=== PATIENT | male | born 1930 | race African-American/Black ===

== ENCOUNTER 2016-08-26 12:51 | Inpatient (IN) | payer MEDICARE, OTHER ==
[~2016-08-26] VITALS: Ht 185.4 cm; Wt 57.2 kg
[~2016-08-26 12:51] MED LIST: ACET-2902 PO; APIX5TAB PO; CARV6 PO; DIGO125T87 PO; DOCU250C91 PO; LEVO150 PO; MECL-111 PO; METF500T4 PO; PANT40TA25 PO; SENN-34 PO; SIMV-261 PO; TEMA15CA PO
[2016-08-26] MEDS ORDERED: ATEN25 PO (13:23)
[2016-08-26] MEDS ORDERED: LOSA50TA37 PO (13:23)
[2016-08-26] MEDS ORDERED: FERR-89 PO (13:23)
[2016-08-26 14:03] LABS: BASOPHILS % (AUTO) 0.1 % (0.0-2.0); EOSINOPHILS % (AUTO) 2.5 % (1.0-6.0); HEMATOCRIT 33.7 % (41-53); HEMOGLOBIN 10.5 g/dL (13.5-17.5); LYMPHOCYTES # (AUTO) 0.4 K/uL (1.0-4.8); LYMPHOCYTES % (AUTO) 7.3 % (22.0-44.0); MEAN CORPUSCULAR HEMOGLOBIN 23.7 pg (26.0-34.0); MEAN CORPUSCULAR HGB CONC 31.2 G/dL (31.0-37.0); MEAN CORPUSCULAR VOLUME 76 fL (80-100); MONOCYTES # (AUTO) 0.3 K/uL (0.1-1.0); MONOCYTES % (AUTO) 5.6 % (2.0-9.0); NEUTROPHILS # (AUTO) 5.2 K/uL (1.8-7.7); NEUTROPHILS % (AUTO) 84.5 % (40.0-70.0); PLATELET COUNT (AUTO) 321 K/uL (150-450); RED BLOOD CELL COUNT(AUTO) 4.45 MIL/uL (4.50-5.90); RED CELL DISTRIBUTION WIDTH 20.6 % (11.5-14.5); WHITE BLOOD COUNT (AUTO) 6.1 K/uL (4.5-11.0)
[2016-08-26 14:13] LABS: ANION GAP 8 mmol/L (8-16); CALCIUM, TOTAL 9.6 mg/dL (8.8-10.5); CARBON DIOXIDE 30 mmol/L (22-29); CHLORIDE 106 mmol/L (98-107); CREATININE 0.91 mg/dL (0.60-1.30); GLOMERULAR FILTR. RATE CALC > 60 mL/min (>60); POTASSIUM 3.3 mmol/L (3.5-5.1); SODIUM SERUM 144 mmol/L (136-145); UREA NITROGEN, BLOOD 16 mg/dL (7-18)
[2016-08-26 14:15] LABS: INR 1.2 (0.9-1.1); PROTHROMBIN TIME 12.5 SEC (9.4-11.6); RBC MORPHOLOGY COMMENT ABNORMAL RBC MORPH
[2016-08-26] MEDS ORDERED: ACETAMINOPHEN 325 MG TABLET PO PRN (14:15)
[2016-08-26] MEDS ORDERED: OxyCODONE HCL/ACETAMINOPHEN 5-325 MG TABLET PO PRN (14:15)
[2016-08-26] MEDS ORDERED: BISACODYL 10 MG RECTAL RECTAL SUPPOSITORY PR PRN (14:15)
[2016-08-26] MEDS ORDERED: ALBUTEROL SULFATE 2.5 MG/0.5 ML NEB SOLUTION NEB PRN (14:15)
[2016-08-26 14:21] LABS: TROPONIN I 0.02 ng/mL (0.00-0.05)
[2016-08-26] MEDS ORDERED: DEXTROSE 50%-WATER 25 GM/50 ML SYRINGE IVP PRN (14:30)
[2016-08-26] MEDS ORDERED: POTASSIUM CHL 10 MEQ/WATER 50 ML IV PRN (14:30)
[2016-08-26] MEDS ORDERED: POTASSIUM CHLORIDE 20 MEQ ER TABLET PO PRN (14:30)
[2016-08-26 14:38] LABS: ALANINE AMINOTRANSFERASE 27 U/L (12-78); ALBUMIN 2.6 g/dL (3.4-5.0); ASPARTATE AMINOTRANSFERASE 24 U/L (15-37); BILIRUBIN,TOTAL 0.4 mg/dL (0.1-1.0); CREATINE KINASE, TOTAL 152 U/L (39-308); THYROID STIMULATING HORMONE 7.79 uIU/mL (0.36-3.74); TOTAL PROTEIN, SERUM 6.7 g/dL (6.4-8.2)
[2016-08-26 14:51] LABS: DIGOXIN < 0.20 ng/mL (0.90-2.00)
[2016-08-26] MEDS ORDERED: POTASSIUM CHLORIDE 20 MEQ ER TABLET PO ONE (15:00)
[2016-08-26] MEDS: ASPIRIN 81 MG CHEWABLE TABLET PO SCH (15:00)
[2016-08-26] MEDS ORDERED: CefTRIAXone 1 GM/DEXTROSE 50 ML IV ONE (15:15)
[2016-08-26] MEDS ORDERED: NITROGLYCERIN 2% (1 GM=INCH) PACKET TP ONE (15:15)
[2016-08-26] MEDS ORDERED: AZITHROMYCIN 500 MG/NS 250 ML IV ONE (15:15)
[2016-08-26] MEDS ORDERED: FUROSEMIDE 40 MG/4 ML VIAL IVP ONE (15:15)
[2016-08-26 15:37] LABS: APPEARANCE,URINE CLOUDY (CLEAR); GLUCOSE, URINE (UA) 100 mg/dL (NEGATIVE); KETONES,URINE NEGATIVE (NEGATIVE); LEUKOCYTE ESTERASE ,URINE NEGATIVE (NEGATIVE); OCCULT BLOOD,URINE LARGE (NEGATIVE); PH,URINE 6.5 (5.0-8.0); PROTEIN,URINE NEGATIVE (NEGATIVE)
[2016-08-26 15:47] LABS: ADD UA MICROSCOPIC YES
[2016-08-26 15:48] LABS: RBC,URINE 51-100 /HPF (0-2); WBC,URINE 0-2 /HPF (0-5)
[2016-08-26 17:16] VITALS: BP 122/75
[2016-08-26 20:08] VITALS: BP 145/78
[2016-08-26] MEDS: CARVEDILOL 6.25 MG TABLET PO SCH (20:10)
[2016-08-26] MEDS: DOCUSATE SODIUM 100 MG CAPSULE PO SCH (20:10)
[2016-08-26] MEDS: HEPARIN SODIUM,PORCINE 5,000 UNITS/ML VIAL SQ SCH (20:10)
[2016-08-26] MEDS ORDERED: HEPARIN SODIUM,PORCINE 5,000 UNITS/ML VIAL SQ SCH (21:00)
[2016-08-26] MEDS ORDERED: APIXABAN 5 MG TABLET PO SCH (21:00)
[2016-08-27] VITALS: BP 137/79
[2016-08-27 04:47] VITALS: BP 134/85
[2016-08-27 08:05] VITALS: BP 119/76
[2016-08-27] MEDS: ASPIRIN 81 MG CHEWABLE TABLET PO SCH (08:35)
[2016-08-27] MEDS: MULTIVITAMINS WITH MINERALS, THERAPEUTIC TABLET PO SCH (08:35)
[2016-08-27] MEDS: PANTOPRAZOLE SODIUM 40 MG DR TABLET PO SCH (08:35)
[2016-08-27] MEDS: HEPARIN SODIUM,PORCINE 5,000 UNITS/ML VIAL SQ SCH ×2 (08:35→20:12)
[2016-08-27] MEDS: DOCUSATE SODIUM 100 MG CAPSULE PO SCH ×2 (08:35→20:12)
[2016-08-27] MEDS: CARVEDILOL 6.25 MG TABLET PO SCH ×2 (08:35→20:12)
[2016-08-27] MEDS ORDERED: 0.9% SODIUM CHLORIDE 5 ML NEB SOLUTION NEB ONE (11:01)
[2016-08-27] MEDS: FUROSEMIDE 20 MG/2 ML VIAL IVP SCH (11:24)
[2016-08-27 11:42] VITALS: BP 124/77
[2016-08-27] MEDS: INSULIN ASPART 100 UNITS/ML SQ PRN ×2 (17:29→20:16)
[2016-08-27 18:03] VITALS: BP 131/85
[2016-08-27 19:54] VITALS: BP 153/89
[2016-08-28] VITALS (7 sets, daily range): BP systolic 129–149; BP diastolic 73–89
[2016-08-28] MEDS: INSULIN ASPART 100 UNITS/ML SQ PRN ×3 (05:52→20:50)
[2016-08-28 06:01] LABS: BASOPHILS # (AUTO) 0.06 K/uL (0.00-0.20); BASOPHILS % (AUTO) 1.5 % (0.0-2.0); EOSINOPHILS % (AUTO) 4.83 % (1.0-6.0); HEMATOCRIT 29.4 % (41-53); HEMOGLOBIN 9.3 g/dL (13.5-17.5); LYMPHOCYTES # (AUTO) 0.5 K/uL (1.0-4.8); LYMPHOCYTES % (AUTO) 12.3 % (22.0-44.0); MEAN CORPUSCULAR HGB CONC 31.7 G/dL (31.0-37.0); MEAN CORPUSCULAR VOLUME 76 fL (80-100); MONOCYTES # (AUTO) 0.3 K/uL (0.1-1.0); NEUTROPHILS # (AUTO) 3.1 K/uL (1.8-7.7); NEUTROPHILS % (AUTO) 74.3 % (40.0-70.0); PLATELET COUNT (AUTO) 237 K/uL (150-450); RED BLOOD CELL COUNT(AUTO) 3.89 MIL/uL (4.50-5.90); RED CELL DISTRIBUTION WIDTH 20.9 % (11.5-14.5); WHITE BLOOD COUNT (AUTO) 4.1 K/uL (4.5-11.0)
[2016-08-28 06:57] LABS: ANION GAP 5 mmol/L (8-16); CALCIUM, TOTAL 8.9 mg/dL (8.8-10.5); CARBON DIOXIDE 33 mmol/L (22-29); CHLORIDE 105 mmol/L (98-107); CREATININE 0.87 mg/dL (0.60-1.30); GLOMERULAR FILTR. RATE CALC > 60 mL/min (>60); POTASSIUM 3.3 mmol/L (3.5-5.1); SODIUM SERUM 143 mmol/L (136-145); UREA NITROGEN, BLOOD 15 mg/dL (7-18)
[2016-08-28 06:58] LABS: RBC MORPHOLOGY COMMENT ABNORMAL RBC MORPH
[2016-08-28] MEDS: FUROSEMIDE 20 MG/2 ML VIAL IVP SCH (08:24)
[2016-08-28] MEDS: CARVEDILOL 6.25 MG TABLET PO SCH ×2 (08:24→20:44)
[2016-08-28] MEDS: MULTIVITAMINS WITH MINERALS, THERAPEUTIC TABLET PO SCH (08:24)
[2016-08-28] MEDS: ASPIRIN 81 MG CHEWABLE TABLET PO SCH (08:24)
[2016-08-28] MEDS: HEPARIN SODIUM,PORCINE 5,000 UNITS/ML VIAL SQ SCH ×2 (08:24→20:44)
[2016-08-28] MEDS: PANTOPRAZOLE SODIUM 40 MG DR TABLET PO SCH (08:24)
[2016-08-28] MEDS: DOCUSATE SODIUM 100 MG CAPSULE PO SCH ×2 (08:24→20:44)
[2016-08-28 21:32] LABS: GLUCOSE,POINT OF CARE 279 MG/DL (70-110)
[2016-08-29 05:38] VITALS: BP 137/71
[2016-08-29 07:27] VITALS: BP 145/84
[2016-08-29] MEDS: FUROSEMIDE 20 MG/2 ML VIAL IVP SCH (08:55)
[2016-08-29] MEDS: DOCUSATE SODIUM 100 MG CAPSULE PO SCH (08:56)
[2016-08-29] MEDS: ASPIRIN 81 MG CHEWABLE TABLET PO SCH (08:56)
[2016-08-29] MEDS: CARVEDILOL 6.25 MG TABLET PO SCH (08:56)
[2016-08-29] MEDS: PANTOPRAZOLE SODIUM 40 MG DR TABLET PO SCH (08:57)
[2016-08-29] MEDS: MULTIVITAMINS WITH MINERALS, THERAPEUTIC TABLET PO SCH (08:57)
[2016-08-29] MEDS: HEPARIN SODIUM,PORCINE 5,000 UNITS/ML VIAL SQ SCH (08:58)
[2016-08-29 10:55] VITALS: BP 133/77
[2016-08-29] MEDS: INSULIN ASPART 100 UNITS/ML SQ PRN (12:00)
[2016-08-29 15:01] VITALS: BP 133/69
[2016-08-29 20:02] LABS: GLUCOSE COMMENT 1 Received Meds; GLUCOSE,POINT OF CARE 311 MG/DL (70-110)
[2016-08-29 20:02] LABS: GLUCOSE,POINT OF CARE 111 MG/DL (70-110)
[2016-09-06 06:30] LABS: GLUCOSE,POINT OF CARE 120 MG/DL (70-110)
[2016-09-06 06:30] LABS: GLUCOSE COMMENT 1 Received Meds; GLUCOSE,POINT OF CARE 205 MG/DL (70-110)
[2016-09-06 06:30] LABS: GLUCOSE,POINT OF CARE 139 MG/DL (70-110)
[2016-09-06 06:30] LABS: GLUCOSE,POINT OF CARE 130 MG/DL (70-110)
[2016-09-08 10:22] LABS: GLUCOSE COMMENT 1 Received Meds; GLUCOSE,POINT OF CARE 190 MG/DL (70-110)
== END 2016-08-29 16:20 | disposition home or self-care (01) | DRG 291 ==
LOC: EMS 12:54 → 5S 14:20 → 5N 08-28 21:00
PROVIDERS: ADMIT Internal Medicine; ATTEND Internal Medicine
DX: I50.43 Acute on chronic combined systolic (congestive) and diastolic (congestive) heart failure (principal); E43 Unspecified severe protein-calorie malnutrition; R55 Syncope and collapse; I50.20 Unspecified systolic (congestive) heart failure; F03.90 Unspecified dementia, unspecified severity, without behavioral disturbance, psychotic disturbance, mood disturbance, and anxiety; I49.5 Sick sinus syndrome; I48.91 Unspecified atrial fibrillation; R62.7 Adult failure to thrive; E78.5 Hyperlipidemia, unspecified; E11.9 Type 2 diabetes mellitus without complications; M19.90 Unspecified osteoarthritis, unspecified site; F31.9 Bipolar disorder, unspecified; E78.00 Pure hypercholesterolemia, unspecified; E11.43 Type 2 diabetes mellitus with diabetic autonomic (poly)neuropathy; E03.9 Hypothyroidism, unspecified; I25.10 Atherosclerotic heart disease of native coronary artery without angina pectoris; I11.0 Hypertensive heart disease with heart failure; K31.84 Gastroparesis; Z85.72 Personal history of non-Hodgkin lymphomas; Z95.0 Presence of cardiac pacemaker; Z79.84 Long term (current) use of oral hypoglycemic drugs; Z79.899 Other long term (current) drug therapy
CPT/HCPCS: 70450; 82962; 84132; 84443; 87040; 93005; 94640; 96365; 96367; 96375; 97162; 99285; J0456; J0696; J1644; J1940